=== PATIENT | female | born 2000 | race Hispanic/Latino ===

== ENCOUNTER → 2021-04-13 11:51 | Outpatient (CLI) | payer OTHER, SELFPAY ==
[2021-04-13 19:47] LABS: COVID19 - ORCAS (NP or Nasal) Negative (Negative)
== END ==
PROVIDERS: Visit Provider Physician Assistant Medical
DX: Z20.822 Contact with and (suspected) exposure to COVID-19 (principal)
CPT/HCPCS: U0003